=== PATIENT | female | born 1945 | race Caucasian/White ===

== ENCOUNTER → 2017-09-05 | Outpatient (CLI) | payer MEDICARE, OTHER ==
--- NOTE | 2017-09-13 09:35 | MAM ---
EXAM DESCRIPTION: 3D Screening BILATERAL : Digital Mammography. CLINICAL HISTORY: 71 years Female SCREENING . No complaints. No family history of breast cancer. Postmenopausal. Taking HRT 5 or more years ago. COMPARISON: 2-D digital screening bilateral studies 04/17/2016 and 03/13/2015.. No prior reports available. TECHNIQUE: Bilateral CC and MLO projection full-field images, 3-D tomosynthesis digital mammographic technique. Also bilateral synthesized CC/ MLO full-field images. CAD not utilized. FINDINGS: The breast parenchymal density pattern is: Scattered areas of fibroglandular density. No skin thickening or nipple retraction bilateral solitary microcalcifications. Coarse calcifications in the lateral right breast associated with soft tissue density. 2 of these show larger benign-appearing calcifications since the prior study. These are consistent with small fibroadenomas. No focal, stellate mass or density, focal asymmetry , and no suspicious microcalcifications bilaterally. IMPRESSION: BI-RADS CATEGORY: 2 - BENIGN FINDINGS. FOLLOW UP: Routine digital bilateral screening, one year interval from September 2017. Written communication explaining the IMPRESSION and follow-up, will be mailed to the patient and referring health care provider. According to the [employer], yearly mammograms are recommended starting at age 40 and continuing as long as a woman is in good health. Any breast change noted on a breast self-exam should be reported promptly to the patient's healthcare provider. Breast MRI is recommended for women with an approximately 20-25% or greater lifetime risk of breast cancer, including women with a strong family history of breast or ovarian cancer and women who have been treated for Hodgkin's disease. A negative mammographic report should not delay tissue diagnosis in patients with significant clinical history or physical findings. Extremely dense breast tissue limits the sensitivity of digital mammography. Electronically signed by: Jony Mancilla MD 09/13/2017 9:34 AM ANCILLARY SERVICES MANAGER
== END ==
LOC: MAMMO 11:00
PROVIDERS: ATTEND Family Medicine
DX: Z12.31 Encounter for screening mammogram for malignant neoplasm of breast (principal)

== ENCOUNTER → 2017-10-14 | Outpatient (CLI) | payer MEDICARE, OTHER | LOC: GMATM 19:16 | PROVIDERS: ATTEND Nurse Practitioner Family | DX: N39.0 Urinary tract infection, site not specified (principal) ==

== ENCOUNTER → 2017-11-16 | Outpatient (CLI) | payer MEDICARE, OTHER | LOC: GMATM 21:19 | PROVIDERS: ATTEND Nurse Practitioner Family | DX: N39.0 Urinary tract infection, site not specified (principal) ==

== ENCOUNTER → 2018-07-05 | Outpatient (CLI) | payer MEDICARE, OTHER ==
--- NOTE | 2018-08-03 12:44 | US ---
EXAM DESCRIPTION: Renal Arteries CLINICAL HISTORY: 72 years Female, HTN COMPARISON: None. TECHNIQUE: Retroperitoneal sonogram was performed to evaluate the kidneys with attention of the renal arteries. FINDINGS: Right kidney No longitudinal images of the right kidney. No renal length measurement is included. One image is labeled right renal artery which appears to be at the level of the renal hilum. Resistive index is 82% which is high. Velocity is 88 cm/s which is within normal limits. Renal cortex may be increased in echogenicity. The adjacent hepatic parenchyma appears hyperechoic and fatty. Bowel gas obscures most of the length of the right renal artery. No diagnostic images of the aorta or aortic velocity measurements. Left kidney No longitudinal images of the left kidney. No measured left renal length. An image labeled left renal artery is apparently obtained at the level of the left renal hilum with a resistive index of 79% which is elevated. The velocity of 86 cm/s is not increased. Bowel gas obscures most of the length of the left renal artery. Renal cortex may be thinned with increased echogenicity. No images of the urinary bladder. IMPRESSION: Renal artery velocity measurements obtained at the renal sharon bilaterally are within normal limits. See above. Electronically signed by: Dillon Ritchie MD 08/03/2018 12:42 PM COMPANION
== END ==
LOC: LAB.O 08:30
PROVIDERS: ATTEND Internal Medicine Nephrology
DX: I10 Essential (primary) hypertension (principal)

== ENCOUNTER → 2020-05-13 | Outpatient (CLI) | payer MEDICARE | LOC: GMAF 14:09 | PROVIDERS: ATTEND Nurse Practitioner Family | DX: R60.0 Localized edema (principal) ==

== ENCOUNTER → 2020-05-14 | Outpatient (CLI) | payer MEDICARE ==
--- NOTE | 2020-05-14 23:43 | US ---
EXAM DESCRIPTION: Venous,Lower Extremity LT (accession [id number]), Venous,Lower Extremity RT (accession [id number]) CLINICAL HISTORY: 74 years Female, LOC SWELLING, MASS AND LUMP, LOWER LIMB CAMILLE COMPARISON: None. TECHNIQUE: Multiple grayscale, color flow, and spectral Doppler images of the bilateral lower extremity veins obtained. FINDINGS: Right: Patent without thrombosis through the visualized lower extremity veins. Left: Patent without thrombosis through the visualized lower extremity veins. Complex cyst in the right popliteal fossa measuring 6.4 x 2.7 x 3.7 cm. IMPRESSION: 1. Negative ultrasound for deep vein thrombosis. 2. Right Starr's cyst. Electronically signed by: Carter Mayo MD 05/14/2020 11:42 PM CDT
--- NOTE | 2020-05-14 23:43 | US ---
EXAM DESCRIPTION: Venous,Lower Extremity LT (accession [id number]), Venous,Lower Extremity RT (accession [id number]) CLINICAL HISTORY: 74 years Female, LOC SWELLING, MASS AND LUMP, LOWER LIMB CAMILLE COMPARISON: None. TECHNIQUE: Multiple grayscale, color flow, and spectral Doppler images of the bilateral lower extremity veins obtained. FINDINGS: Right: Patent without thrombosis through the visualized lower extremity veins. Left: Patent without thrombosis through the visualized lower extremity veins. Complex cyst in the right popliteal fossa measuring 6.4 x 2.7 x 3.7 cm. IMPRESSION: 1. Negative ultrasound for deep vein thrombosis. 2. Right Starr's cyst. Electronically signed by: Carter Mayo MD 05/14/2020 11:42 PM CDT
== END ==
LOC: RAD 09:58
PROVIDERS: ATTEND Family Medicine
DX: M71.21 Synovial cyst of popliteal space [Baker], right knee (principal); R22.43 Localized swelling, mass and lump, lower limb, bilateral

== ENCOUNTER → 2020-06-09 | Outpatient (CLI) | payer MEDICARE ==
--- NOTE | 2020-06-09 17:53 | CT ---
EXAM DESCRIPTION: Abdomen/Pelvis w/Contrast CLINICAL HISTORY: 74 years Female, UPPER ABDOMINAL PAIN, UNSPECIFIED TECHNIQUE: This exam was performed according to our departmental dose-optimization program, which includes automated exposure control, adjustment of the mA and/or kV according to patient size and/or use of iterative reconstruction technique. COMPARISON: None at time of initial interpretation. FINDINGS: Visualized lung bases are grossly unremarkable. The liver is unremarkable. No suspicious hepatic lesion. No biliary dilatation. Cholecystectomy. The portal vein is patent. The spleen, pancreas and adrenal glands are unremarkable. Small hiatal hernia. Symmetric renal parenchymal enhancement. No hydronephrosis. No urolithiasis. Unremarkable bladder. Hysterectomy. Complex cystic septated right pelvic mass with a peripheral coarse calcification. This cystic mass measures 5.8 x 4.5 cm and is closely associated with the small bowel in the right pelvis. Scattered colonic diverticula without focal inflammatory change. No evidence of bowel obstruction. No findings to suggest appendicitis. No adenopathy. No focal fluid collection. No free air. Normal caliber abdominal aorta. Diffuse atherosclerotic disease. No acute or suspicious osseous abnormality. Scattered degenerative changes present. IMPRESSION: 1. No evidence of acute process in the abdomen or pelvis. 2. Complex septated cystic right pelvic mass measuring 5.8 cm which may be adnexal in origin. Recommend pelvic ultrasound and gynecologic consultation. Electronically signed by: Judson Mclaughlin MD 06/09/2020 5:52 PM CHIEF BUSINESS DEVELOPMENT OFFICER
== END ==
LOC: RAD 10:51
PROVIDERS: ATTEND Family Medicine
DX: R10.10 Upper abdominal pain, unspecified (principal); R19.09 Other intra-abdominal and pelvic swelling, mass and lump

== ENCOUNTER → 2020-06-18 | Outpatient (CLI) | payer MEDICARE ==
--- NOTE | 2020-06-18 19:55 | CT ---
EXAM DESCRIPTION: Abdomen/Pelvis w/wo Contrast: Computed Tomography. CLINICAL HISTORY: ABDOMINAL PAIN. Colonic stricture. COMPARISON: CT scan of the abdomen with IV contrast June 09 TECHNIQUE: Spiral-axial scans at 5 x 5 mm intervals through the abdomen and pelvis before and after 75 mL Optiray 320 nonionic IV contrast. After 60 mL Gastrografin water-soluble contrast with equal parts water mixture. Coronal and sagittal 2.0 mm reconstructions. No delayed images No adverse reactions. Total Exam DLP 2174 mGy - cm. This exam was performed according to our departmental CT dose-optimization program which includes automated exposure control, adjustment of the mA and/or kV according to patient size and/or use of iterative reconstruction technique; to reduce radiation dose to as low as reasonably achievable (ALARA). FINDINGS: Terminal Ileum/Cecum: Normal caliber of the terminal ileum. Distention of the cecum with gas and fecal matter. Minimal wall thickening. Appendix not seen. No fatty inflammatory changes. Colon: Ascending colon and the proximal and transverse colon are distended by fecal matter and gas. At the junction of the distal transverse splenic flexure of the colon, there is irregular narrowing of the lumen and wall of the colon which is approximately 3-10 cm in length. No fatty stranding or fluid surrounding this stricture. No soft tissue mass. Small Diverticula are noted distal to the stricture, with suggestion of small air pockets in the wall of the stricture. This process is best demonstrated on the CT sagittal series 500, images 136-160. The stricture is not significantly changed from the prior study. The remainder of the colon is decompressed. No significant wall or mucosal thickening and no additional strictures. No other diverticula are noted. Pelvic Organs: The septated lobulated right adnexal mass seen on the prior study with cystic and cystic-solid compartments, measuring 5.0 x 4.8 x 4.6 cm is stable. Calcification in the edge of the mass. Mass effect on small bowel and right posterior urinary bladder. No free fluid in the pelvis. No mass in the left adnexa. The vaginal cuff is negative. No fluid in the cul-de-sac.. Spine and Bony Pelvis: Hip joint space narrowing. Lumbar spondylosis and spondylolisthesis. Abdominal Wall/Back Soft Tissues: Fatty inguinal hernias containing bowel. No diastases of the midline abdominal wall inferior to the umbilicus which also demonstrates diastases. No incarcerated bowel. Lung bases and pleura: Coronary artery calcifications. Minimal pleural thickening with no acute infiltrate. Liver, Stomach, Spleen, Adrenal Glands: Long axis right lobe liver 19.7 cm stable. No focal lesions. Paraesophageal hernia stable. Adrenal glands and spleen normal size and density. Pancreas, Gallbladder, Ducts: Surgical clearance, possibly. Dilated common bile duct. Pancreas is unremarkable with pancreatic duct is not dilated. Kidneys and Ureters: Prominent right extrarenal pelvis but no obstruction. Bilateral kidneys and ureters otherwise negative. Mesentery: No fatty stranding or fascial thickening. No free air free fluid. Aorta: Moderate atherosclerotic calcification more severe in the distal aorta and calcification of the major branch vessels. Small Bowel: Contains oral contrast with no air contrast levels or distention. Or obstruction. IMPRESSION: 1. Irregular stricture 3 to 10 cm of the mucosa and wall of the junction of the transverse colon and hepatic flexure with distention of the cecum, ascending colon and transverse colon by fecal matter and gas. Colon distal to this stricture is decompressed. No inflammatory changes or fluid in the adjacent fat. No extrinsic mass. Stable since June 09. Possibly old diverticulitis or other inflammatory process progressing to stricture. 2. Multiloculated partially cystic and partially solid right adnexal mass with calcification with no separate or normal ovarian tissue seen. No free fluid. Stable since June 09. 5 cm indeterminate ovarian cyst. Recommend prompt follow-up with pelvic US. Reference: J Am Noe Radiol 2013;10:675-681. 3. Paraesophageal gastric hernia. Fatty inguinal hernia not containing bowel. Diastases of the umbilicus in the Abdominal wall inferior to the umbilicus not containing bowel. Hepatomegaly. Moderate atherosclerotic calcification of the abdominal aorta. These findings are stable since the prior study CRITICAL COMMUNICATION: The critical value was communicated directly by Dr. Mancilla via phone call, with Dr. Aneudy North, at approximately 1910 hours, on June 18, 2020. Electronically signed by: Jony Mancilla MD 06/18/2020 7:53 PM CDS SALES ADVISOR
== END ==
LOC: LAB.O 14:26
PROVIDERS: ATTEND Surgery
DX: K56.609 Unspecified intestinal obstruction, unspecified as to partial versus complete obstruction (principal); K63.9 Disease of intestine, unspecified; K44.9 Diaphragmatic hernia without obstruction or gangrene; K40.90 Unilateral inguinal hernia, without obstruction or gangrene, not specified as recurrent; R16.0 Hepatomegaly, not elsewhere classified; R19.09 Other intra-abdominal and pelvic swelling, mass and lump; N83.209 Unspecified ovarian cyst, unspecified side; I70.0 Atherosclerosis of aorta; M62.08 Separation of muscle (nontraumatic), other site

== ENCOUNTER → 2020-06-19 | Outpatient (CLI) | payer MEDICARE ==
--- NOTE | 2020-06-20 12:54 | RAD ---
EXAM DESCRIPTION: Barium Enema: RF CLINICAL HISTORY: RULE OUT TRANSVERSE COLON STRUCTURE COMPARISON: CT scan of abdomen and pelvis with IV contrast June 09. CT scan of abdomen and pelvis with IV and oral contrast June 18. TECHNIQUE: Fluoroscopy performed by Dr. Mancilla. Backup Administrative Coordinator Image obtained in supine position. Barium enema tip inserted in rectum. Barium contrast introduced into the rectum in a retrograde manner under fluoroscopic visualization. Multiple fluoroscopic guided images. The patient partially evacuated the barium and the enema tip dislodged. Enema tip was reinserted and additional barium was administered, with additional fluoroscopic images. Patient again partially evacuated and dislodged enema tip. No overhead digital radiographic images were obtained. The patient had no immediate complications. Fluoroscopy time was 4.5 minutes. Fluoroscopic images recorded: 15 . Conventional abdominal images recorded: Backup Administrative Coordinator Image only . DAP: 38.04 Gy-centimeter squared. FINDINGS: Difficulty introducing the barium in the distal colon which is decompressed. Spasm in the distal sigmoid colon. Minimal narrowing in the splenic flexure, but no elongated stricture as was seen on the most recent CT scan. One segment demonstrates irregularity in the approximate region where CT abnormality was noted. Full distention of this region of interest by barium contrast was not achieved due to premature evacuation. Mostly gas in the transverse colon, and contains fecal material in the ascending colon, hepatic flexure, and proximal transverse colon. No contrast extravasation. IMPRESSION: Irregular short segment in the vicinity of the splenic flexure of the colon and distal transverse colon which may correspond to abnormal stricture on CT scan but shorter in length than the CT abnormality. The study was limited by lack of contrast distention in the region of interest due to patient inability to retain barium to complete the study. No barium contrast leakage demonstrated. Electronically signed by: Jony Mancilla MD 06/20/2020 12:52 PM AUDITING CONTROL CLERK
== END ==
LOC: US 10:45
PROVIDERS: ATTEND Surgery
DX: K56.690 Other partial intestinal obstruction (principal)

== ENCOUNTER 2020-06-24 08:00 | Inpatient (IN) | payer MEDICARE ==
[2020-06-24] MEDS ORDERED: MAGNESIUM HYDROXIDE 30 ML UD PO ONE (17:24)
[2020-06-24] MEDS ORDERED: ONDANSETRON INJ 4 MG/2 ML VIAL IV PRN (17:24)
[2020-06-24] MEDS ORDERED: GLUCAGON INJ 1 MG VIAL SUBCU PRN (17:28)
[2020-06-24] MEDS ORDERED: DEXTROSE 50% 25 GM/50 ML SYG IV PRN (17:28)
[2020-06-24] MEDS ORDERED: ACETAMINOPHEN W/ COD #4 TAB 1EA TAB PO PRN (18:39)
--- NOTE | 2020-06-24 18:58 | CONS ---
SUPERVISING PHYSICIAN: Camron House MD HISTORY OF PRESENT ILLNESS: This is a 74 year-old female patient who was admitted to the hospital today for a scheduled abdominal surgery. She had been complaining of some abdominal pain and requested Dr. Padilla North, general surgeon, for operative intervention. He took her to surgery today and found adhesions that were removed laparoscopically and there was no mass or tumor found. She had no intraoperative complications and she was admitted to the medical/surgical floor postoperatively. PAST MEDICAL HISTORY: 1. Hypertriglyceridemia.. 2. Hypertension. 3. Type 2 diabetes. 4. Osteoporosis. PAST SURGICAL HISTORY: 1. Cholecystectomy. 2. Hysterectomy. CURRENT MEDICATIONS: Per the EMR and awaiting verification. ALLERGIES: Cephalexin and Ciprofloxacin. FAMILY HISTORY: Positive for CVA, DC and hypertension. SOCIAL HISTORY: She is , she lives in [place]. There is no history of tobacco, ETOH or illicit drug use. REVIEW OF SYSTEMS: Negative except as per history of present illness. PHYSICAL EXAMINATION: VITAL SIGNS: Temperature 97.8, heart rate 65, blood pressure 132/70, respiratory rate 14, oxygen saturation 92% on 2 liters nasal cannula. GENERAL: This is a 74 year-old female patient who is on the med/surg postoperatively. She is in no acute distress. HEENT: Normocephalic and atraumatic. Pupils are equal and reactive. Oropharynx is clear. NECK: Supple without mass. CHEST: Essentially clear to auscultation bilaterally. HEART: Regular rate and rhythm. ABDOMEN: Soft, nondistended. It is diffusely tender. NEUROLOGIC: She is lethargic postoperatively but answers questions appropriately. SKIN: [place], warm and dry. LABORATORY: There are no labs or films to report at this time. IMPRESSION: 1. Abdominal pain with lysis of adhesions, postoperative day #0, performed by Dr. Padilla North. 2. Hypertension. 3. Diabetes mellitus. 4. Hypertriglyceridemia. PLAN: We will continue present supportive care. Operative issues will be per Dr. North and we will follow his recommendations. I have encouraged good pulmonary hygiene. I have put her on some judicious fluids overnight. She will have her diet advanced from clear to full liquid tomorrow. She has Tylenol #4 for pain medication. We will follow and treat has needed. #[id number] [facility]
[2020-06-24] MEDS ORDERED: MAGNESIUM HYDROXIDE 30 ML UD ONE (20:03)
[2020-06-24] MEDS: INSULIN LISPRO 100 UNITS/ML PEN SUBCU SCH (21:01)
[2020-06-25] MEDS: KCL 20MEQ/D5 1/2NS 1,000 ML IVS PRN ×2 (01:22→10:48)
[2020-06-25] MEDS: INSULIN LISPRO 100 UNITS/ML PEN SUBCU SCH ×2 (07:11→11:36)
[2020-06-25 10:31] VITALS: BP 172/69; TEMP 98.3; O2SAT 95
--- NOTE | 2020-06-25 14:19 | DS ---
REASON FOR ADMISSION: Colon obstruction. PROCEDURE: Laparoscopic adhesiolysis. CONSULTANTS: Medicine. HOSPITAL COURSE: The patient came for colon obstruction and pending total obstruction. She underwent laparoscopy. Please see operative report for complete details. We found adhesions in the area of interest. No obvious mass. Once the adhesions were freed, it appeared the colon was wide open at this point. She was admitted postoperatively for observation. At this point, she has had no flatus or stool, but she is feeling well, tolerating a liquid diet. Given her findings in the Operating Room, it appears this should resolve the problem, so we recommended she will be discharged. She is to take laxatives at home, advance diet as tolerated. I will see her next Tuesday, where I would like to perform a formal bowel prep and repeat a colonoscopy. Her last was 5 years ago. We would like to see that area from the inside which showed abnormality on the barium enema as well. She understands and agrees to this plan. #[id number] [facility]
--- NOTE | 2020-07-08 09:58 | OP ---
DATE OF PROCEDURE: 06/24/20 PREOPERATIVE DIAGNOSIS: 1. Documented transverse colon stricture. POSTOPERATIVE DIAGNOSIS: 1. Adhesions. PROCEDURE: 1. Laparoscopic exploration and adhesiolysis. SURGEON: Padilla North MD. TYPESETTING MACHINE TENDER: Yared Portillo MD. ANESTHESIA: General and local. FINDINGS: In the area of suspected stricture of the distal transverse colon were unusual adhesions of the omentum to the mesentery. These were all taken down. Final examination revealed no evidence of masses or continued stricture. INDICATION: This woman had a history of constipation, multiple laxatives and this has gone on for a long, long time. She had a CT scan that was read as relatively normal, but on my review, there appeared to be a stricture in the distal transverse colon. We repeated the scan well over a week later and the area of suspicion persisted. She was not completely blocked up. The cecal size was not dangerously dilated. We then had barium enema performed which was not an optimal study, but it did confirm some changes in that area as well, so I recommended surgery, possible colectomy, possible splenic flexure takedown. Risks and benefits were discussed. PROCEDURE: The patient was brought to the Operating Suite in supine position. General anesthesia was induced. The patient was prepped and draped in sterile fashion. Marcaine 0.5% with epinephrine was used at all incision sites. While maintaining upward traction, a lizzy was made near the base of the umbilicus. Veress needle was introduced. There was free flow of fluid into the peritoneal cavity which was insufflated to an appropriate level with CO2 gas. The 5 mm trocar was placed followed by the camera. There was no evidence of bleeding or bowel injury. The patient was positioned and examined. The area was fat and could not identify much at this time. Two additional ports were placed in the right midabdomen just lateral to midline and we began an exam in the area. The colon was dilated. We could see this to near the distal transverse colon. The inferior pole of the spleen was identified. We began to dissect omental adhesions to the mesentery of the distal transverse colon. This freed up the area of colon underneath. There were still more adhesions here, so we freed this up. I did document with pictures one specific area that had a lot of adhesions going over the colon. Once these were freed, the underlying colon did not appear to be strictured, but the stricture may have been relieved as we took the adhesions off the anterior bowel. We manipulated as much as we could to rule out a mass. We could see the area. It was nice and soft. There was no evidence of a mass. As we manipulated the bowel, we could see the large amount of air going up through and passing through the area easily. The mesentery was examined. There was no evidence of mesenteric adenopathy, nothing not seen on CT scan, no other findings were seen during surgery. It appeared we had relieved the strictured area with adhesiolysis only. At this point, the abdomen was desufflated. The trocars were removed and there was no bleeding from the trocar sites. The wounds were closed with Monocryl and dressing applied. She was awakened and taken to Recovery where she will be observed overnight and discharged. I will likely do a colonoscopy just to confirm the mucosal surfaces are normal as well. #[id number] MTDD
== END 2020-06-25 14:09 | disposition home or self-care (01) | DRG 337 ==
LOC: UNDOADMIN 13:16 → MS 13:16
PROVIDERS: ADMIT Surgery; ATTEND Surgery
PROC: 0DNL4ZZ Release Transverse Colon, Percutaneous Endoscopic Approach (ICD-10-PCS; principal; 2020-06-24)
DX: K56.51 Intestinal adhesions [bands], with partial obstruction (principal); E78.1 Pure hyperglyceridemia; I10 Essential (primary) hypertension; E11.9 Type 2 diabetes mellitus without complications; M81.0 Age-related osteoporosis without current pathological fracture; Z88.1 Allergy status to other antibiotic agents; Z79.84 Long term (current) use of oral hypoglycemic drugs; Z79.899 Other long term (current) drug therapy; E78.00 Pure hypercholesterolemia, unspecified; F32.9 Major depressive disorder, single episode, unspecified; Z79.82 Long term (current) use of aspirin

== ENCOUNTER 2020-07-03 20:32 | Emergency (ER) | payer MEDICARE ==
[2020-07-03] MEDS ORDERED: SODIUM CHLORIDE 0.9% 1000ML 1,000 ML IVS PRN (21:07)
--- NOTE | 2020-07-03 21:15 | ED.PDOC ---
History of Present Illness - General Stated Complaint: confusion, hyponatremia Time Seen by Provider: 07/03/20 20:41 Source: patient, RN notes reviewed, Vital Signs reviewed, family, old records, other - outside labs from [facility] - History of Present Illness Initial Comments: Patient is a 74-year-old female who presents to ED with her daughter for 5-day history of increased confusion, drowsiness and balance problems. Daughter states that she had surgery here by Dr. Jones for a bowel obstruction on June 24. She had difficulty with constipation following surgery and they have been pushing oral hydration with free water. She also took magnesium citrate on Tuesday and had several stools at that time. Her confusion has been worsening for the past 4 days and she states she has been having difficulty walking due to balance problems is. Patient denies any fever, headache, abdominal pain, chest pain, shortness of breath, nausea or vomiting. The home health nurse came to the house today and sunita blood and they were called [facility] and told to go to the ER because her sodium level was 114 and it was dangerously low. Timing/Duration: getting worse Severity: moderate Improving Factors: nothing Worsening Factors: nothing Allergies/Adverse Reactions: Allergies Cephalexin [From Keflex] Allergy (Verified 08/16/14 12:42) Ciprofloxacin [From Cipro] Allergy (Verified 06/24/20 14:33) Home Medications: Ambulatory Orders Alendronate Sodium [Fosamax] 70 mg PO WKLY 06/24/20 Amlodipine Besylate [Norvasc] 5 mg PO DAILY 06/24/20 Aspirin (Buffered) 325 mg [Bufferin 325 mg] 1 ea PO PRN PRN 06/24/20 Atorvastatin Calcium 40 mg PO BEDTIME 06/24/20 Carvedilol 25 mg PO BID 06/24/20 Citalopram Hydrobromide [Citalopram] 20 mg PO DAILY 06/24/20 Clonidine HCl 0.1 mg PO TID 06/24/20 Cyclobenzaprine HCl [Cyclobenzaprine Hydrochlo] 10 mg PO BID PRN 06/24/20 Hydrochlorothiazide 25 mg PO BID 06/24/20 Lisinopril 40 mg PO BID 06/24/20 Metformin HCl [Glumetza] 500 mg PO DAILY 06/24/20 traZODone HCL [Desyrel] 50 mg PO BEDTIME 06/24/20 Review of Systems - Review of Systems Constitutional: Denies: chills, fever, weakness EENTM: Denies: blurred vision, nose congestion, throat pain Respiratory: Denies: cough, short of breath Cardiology: Denies: chest pain, palpitations, syncope Gastrointestinal/Abdominal: Denies: abdominal pain, nausea Genitourinary: Denies: dysuria, frequency Musculoskeletal: Denies: back pain, muscle pain Skin: Denies: rash Neurological: States: other - Balance issues, confusion, increased sleepiness. Denies: headache Hematologic/Lymphatic: States: no symptoms reported All other Systems: Reviewed and Negative Past Medical History (General) - Patient Medical History Hx Seizures: No Hx Stroke: No Hx Dementia: No Hx Asthma: No Hx of COPD: No Hx Cardiac Disorders: No Hx Congestive Heart Failure: No Hx Pacemaker: No Hx Hypertension: Yes Hx Thyroid Disease: No Hx Diabetes: No Hx Gastroesophageal Reflux: No Hx Renal Disease: No Hx Cancer: Yes - Uterus Hx of HIV: No Hx Hepatitis C: No Hx MRSA: No Surgical History: Hysterectomy, other - Vaccination History Hx Tetanus, Diphtheria Vaccination: No Hx Influenza Vaccination: Yes Hx Pneumococcal Vaccination: No - Social History Hx Tobacco Use: No Hx Chewing Tobacco Use: No Hx Alcohol Use: No Hx Substance Use: No Hx Substance Use Treatment: No Hx Depression: No Feels Threatened In Home Enviroment: No Feels Threatened In a Relationship: No Hx Physical Abuse: No Hx Emotional Abuse: No Hx Suspected Abuse: No - Female History Patient is a Female of Child Bearing Age (10 -59 yrs old): No Patient : No - Triage Comment ED Triage Comment: The patient was brought into the ER via wheelchair into ER bed 1. She was alert and oriented times 4 but was weak and needed assistance moving from wheelchair to the ER bed. She denied pain, shortness of breath, chest pain and nausea. Her main complaint was weakness and confusion since post surgery. Family Medical History - Family History Sister Living Status: Still Living Hx Family Hypertension: Yes Physical Exam - Physical Exam General Appearance: Alert, Comfortable, No apparent distress, Other - Lying in bed comfortably Eye Exam: bilateral other - PERRL, no nystagmus Ears, Nose, Throat: normal pharynx Neck: non-tender, full range of motion, supple Respiratory: chest non-tender, lungs clear, normal breath sounds, no respiratory distress Cardiovascular/Chest: regular rate, rhythm, no edema Gastrointestinal/Abdominal: non tender, soft, other - abdomen is soft. Mild ecchymosis to right abdomen. NTTP, surgical incisions are c/d/i Back Exam: no CVA tenderness, no vertebral tenderness Extremity: normal range of motion, non-tender, normal inspection Neurologic: alert, normal mood/affect, oriented x 3, other - CN intact, strength 5/5 x 4 Skin Exam: normal color, warm/dry Progress - Progress Progress: 07/03/20 21:20 Patient presents with a history of confusion, drowsiness and balance issues. She had abdominal surgery 9 days ago for a stricture of transverse colon and had laproscopic lysis of adhesions. She denies any fever or abdominal pain. Labs were performed by home health agency and RN our system tonight showing sodium, chloride of 76, creatinine of 0.6, glucose of 91, and white blood cell count of 6. Will start slow IV fluids to correct hyponatremia and will not increase more than 10 points in a 24-hour.. Also get CT of the brain to rule out intracranial pathology causing her symptoms and urinalysis to rule out urinary tract infection. With Dr. Jones patient's symptoms and labs. She has no abdominal tenderness or fever. He is available to consult if needed and recommends admission to medicine service. 07/03/20 21:54 D/W Deanna Saleem, hospitalist, they do not take hyponatremia of less than 116 here. Will have to transfer for higher level of care. 07/03/20 22:01 D/W pt and daughter results and plan to transfer. Pt daughter is a nurse at [facility] and they request to attempt to transfer to that facility. Will start transfer process. 07/03/20 23:51 D/W Dr. Calix at [facility] and he accepts pt transfer. - Results/Orders Results/Orders: CT BRAIN EXAM: CT head without contrast CLINICAL INDICATION: Altered mental status COMPARISON: There is no previous study for comparison. TECHNIQUE: CT scan was done using contiguous axial 5 mm sections through the brain. This exam was performed according to our departmental dose-optimization program, which includes automated exposure control, adjustment of the mA and/or kV according to patient size and/or use of iterative reconstruction technique. FINDINGS: There is no midline shift, mass effect, or extraaxial fluid collection. There is no evidence of acute intracranial hemorrhage, mass lesion, or cerebral edema. Mild diffuse atrophy and moderate nonspecific chronic ischemic changes are identified. 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 Bone window images reveal no evidence of a skull fracture. IMPRESSION: No evidence of an acute intracranial process. COVID NEGATIVE SEE EMR for CBC, CMP. Sodium 114, Chloride 76 Laboratory Results - last 24 hr 07/03/20 22:33 Urine Color Straw Urine Appearance Sl cloudy Urine pH 6.5 Ur Specific [place] <= 1.005 Urine Protein Negative Urine Glucose (UA) Negative Urine Ketones Negative Urine Blood Negative Urine Nitrite Negative Urine Bilirubin Negative Urine Urobilinogen 0.2 Ur Leukocyte Esterase Trace H Urine RBC 0 Urine WBC 1-3 Ur Epithelial Cells 3-5 Urine Bacteria Rare Departure - Departure Clinical Impression: Hyponatremia, Elevated blood pressure reading, Hypochloremia Altered mental state Qualifiers: Altered mental status type: unspecified Qualified Code(s): R41.82 - Altered mental status, unspecified Time of Disposition: 23:52 Disposition: Transfer to Hospital Condition: Fair Referrals: Padilla You MD [Primary Care Provider] - 1-2 Weeks Home Medications: Ambulatory Orders Alendronate Sodium [Fosamax] 70 mg PO WKLY 06/24/20 Amlodipine Besylate [Norvasc] 5 mg PO DAILY 06/24/20 Aspirin (Buffered) 325 mg [Bufferin 325 mg] 1 ea PO PRN PRN 06/24/20 Atorvastatin Calcium 40 mg PO BEDTIME 06/24/20 Carvedilol 25 mg PO BID 06/24/20 Citalopram Hydrobromide [Citalopram] 20 mg PO DAILY 06/24/20 Clonidine HCl 0.1 mg PO TID 06/24/20 Cyclobenzaprine HCl [Cyclobenzaprine Hydrochlo] 10 mg PO BID PRN 06/24/20 Hydrochlorothiazide 25 mg PO BID 06/24/20 Lisinopril 40 mg PO BID 06/24/20 Metformin HCl [Glumetza] 500 mg PO DAILY 06/24/20 traZODone HCL [Desyrel] 50 mg PO BEDTIME 06/24/20 Transfer to Outside Facility - Transfer Information Decision to Transfer Date: 07/03/20 Decision to Transfer Time: 22:55 Reason for Transfer: specialized care not available
--- NOTE | 2020-07-03 21:41 | CT ---
EXAM: CT head without contrast CLINICAL INDICATION: Altered mental status COMPARISON: There is no previous study for comparison. TECHNIQUE: CT scan was done using contiguous axial 5 mm sections through the brain. This exam was performed according to our departmental dose-optimization program, which includes automated exposure control, adjustment of the mA and/or kV according to patient size and/or use of iterative reconstruction technique. FINDINGS: There is no midline shift, mass effect, or extraaxial fluid collection. There is no evidence of acute intracranial hemorrhage, mass lesion, or cerebral edema. Mild diffuse atrophy and moderate nonspecific chronic ischemic changes are identified. 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 Bone window images reveal no evidence of a skull fracture. IMPRESSION: No evidence of an acute intracranial process. Electronically signed by: South Lucas MD 07/03/2020 9:39 PM [facility]
[2020-07-03 23:18] VITALS: TEMP 97.2
[2020-07-04 00:48] VITALS: BP 165/72; O2SAT 97
== END 2020-07-04 00:49 | disposition short-term general hospital (02) ==
LOC: ER 20:32
DX: R41.82 Altered mental status, unspecified (principal); E87.1 Hypo-osmolality and hyponatremia; E87.8 Other disorders of electrolyte and fluid balance, not elsewhere classified; I10 Essential (primary) hypertension; R53.1 Weakness; Z20.828 Contact with and (suspected) exposure to other viral communicable diseases; Z98.890 Other specified postprocedural states; Z85.42 Personal history of malignant neoplasm of other parts of uterus; Z79.84 Long term (current) use of oral hypoglycemic drugs; Z79.899 Other long term (current) drug therapy; Z79.82 Long term (current) use of aspirin; Z88.1 Allergy status to other antibiotic agents
CPT/HCPCS: 70450; 80053; 81001; 83880; 85025; 87635; J7030

== ENCOUNTER 2020-07-10 13:15 | Day surgery (SDC) | payer MEDICARE ==
[~2020-07-10 13:15] MED LIST: LIDOCAINE 1% 10 ML VIAL INJ ONE; PROPOFOL 200 MG/20 ML VIAL IV ONE
[2020-07-11] MEDS ORDERED: LACTATED RINGERS 1,000 ML ONE (06:52)
[2020-07-11 10:27] VITALS: O2SAT 98
--- NOTE | 2020-07-11 11:17 | OP ---
DATE OF PROCEDURE: 07/11/20 PREOPERATIVE DIAGNOSIS: 1. Colon stricture post laparoscopic adhesiolysis. 2. History of colon polyps. POSTOPERATIVE DIAGNOSIS: 1. Colon polyps. PROCEDURE: 1. Colonoscopy with polypectomy x2, both 2 mm, and random colon biopsy near sigmoid. SURGEON: Padilla North MD COMPLICATIONS: None. PLAN: Discharge. INDICATION: This is a 74-year-old woman who recently had a laparoscopic exploration with adhesiolysis due to a persistent stricture in the transverse colon and some longstanding constipation. Adhesiolysis was performed. We now want to do a followup colonoscopy to ensure there are no internal mucosal abnormalities in that area and there were none. She was also recently admitted with hyponatremia that has been resolved. She got an adequate prep and is here today for the scope. PROCEDURE: General anesthesia was induced in the lateral position. Digital rectal exam was normal. She did have a lot of liquid stool that was coming, but overall an adequate prep. The colonoscope was inserted. There were some twists in the sigmoid with no significant diverticulosis. We got up to the cecum. There was multiple looping. We replaced the patient multiple times. We could definitely see the cecum and ileocecal valve in the distal cecum, I believe I saw the appendiceal orifice. We did not touch the end of the cecum, however, but we definitely were passed the transverse colon, which was our area of interest and it was normal. Upon careful withdrawal with an adequate prep, two polyps were seen. One was in the transverse colon. It was under 2 mm. Another was in the mid colon, under 2 mm. On withdrawal, we got a good distended look at the colon. If there was a stricture, we anticipated it would be a short segment, but everything distended well and all the transverse colon to the splenic flexure and down the descending was normal as well. In the distal descending near the sigmoid junction, there was some erythema in the mucosa, so two random biopsies in the same area were performed. Upon further withdrawal, no other abnormalities were seen. The patient tolerated the procedure, was awakened and taken to Recovery to be discharged. #[id number] cc: Padilla You MD [facility] CENTERReagan
[2020-07-11 11:35] VITALS: BP 103/54; TEMP 97.2
== END 2020-07-11 11:37 | disposition home or self-care (01) ==
LOC: AMB 13:15
PROVIDERS: ATTEND Surgery
DX: D12.3 Benign neoplasm of transverse colon (principal); E11.9 Type 2 diabetes mellitus without complications; I10 Essential (primary) hypertension; E78.00 Pure hypercholesterolemia, unspecified; F32.9 Major depressive disorder, single episode, unspecified; Z86.010 Personal history of colon polyps; Z88.1 Allergy status to other antibiotic agents; Z90.710 Acquired absence of both cervix and uterus; Z79.84 Long term (current) use of oral hypoglycemic drugs; Z79.899 Other long term (current) drug therapy
CPT/HCPCS: 00811; 36416; 45380; 82948; 88305; J3490; J7120

== ENCOUNTER → 2020-07-16 | Outpatient (CLI) | payer MEDICARE | LOC: BFHH 13:16 | PROVIDERS: ATTEND Family Medicine | DX: I10 Essential (primary) hypertension (principal); E87.1 Hypo-osmolality and hyponatremia; R42 Dizziness and giddiness; E11.40 Type 2 diabetes mellitus with diabetic neuropathy, unspecified; E78.2 Mixed hyperlipidemia; F32.9 Major depressive disorder, single episode, unspecified; F41.1 Generalized anxiety disorder; M81.0 Age-related osteoporosis without current pathological fracture ==

== ENCOUNTER → 2020-08-06 | Outpatient (CLI) | payer MEDICARE ==
--- NOTE | 2020-08-06 13:54 | MRI ---
EXAM DESCRIPTION: Thoracic Spine w/o Contrast: Magnetic Resonance Imaging. CLINICAL HISTORY: PAIN IN THORACIC SPINE COMPARISON: Radiographs of the lumbar and thoracic spine on July 28. TECHNIQUE: Multiplanar, multiple standard sequences, non contrast MRI, thoracic spine. FINDINGS: 4 x 4 millimeter protrusion at T3-T4 in the midline and left of midline impressing on the left ventral cord. Disc space loss and mild disc desiccation. Mild canal narrowing. Mild narrowing of the right foramen and left foramen patent. Facet joints are negative. Minimal desiccation of the T2-T3 disc with disc space maintained. Tiny posterior midline bulge with canal narrowing. Bilateral foramina are patent. Facet joints are negative. T7-T8, T6-T7, T5-T6, and T4-T5 discs are desiccated with disc space loss. Posterior midline bulge at T7-T8 abutting the cord. Tiny T5-T6 posterior disc bulge not abutting the cord with canal narrowing at both levels. Bilateral foramina are patent. Anterior disc bulging and endplate ridging also at T7-T8, T8-T9, and T9-T10. The lower 2 discs are not desiccated, and disc spaces maintained. T10-T11 disc space maintained with disc desiccation. No facet arthrosis at these levels and no canal or foraminal stenosis. Remaining discs with normal signal. Disc spaces are preserved. Canal and foramina are patent. Facet joints are unremarkable. Conus terminates at T12-L1. Cord with normal signal, no compression. Mid to lower lumbar dextroscoliosis. Paravertebral soft tissues are unremarkable. Normal marrow signal in the remaining vertebral bodies and the posterior elements. Vertebral bodies are not compressed at any level. IMPRESSION: 1. Posterior midline and left paracentral 4 mm protrusion of the T3-T4 disc impressing on the cord. Correlate for unilateral or bilateral decubitus radiculopathy. No cord edema. Moderate canal narrowing and mild narrowing of the right foramen. 2. Multiple disc with desiccation and disc space loss. No significant facet hypertrophic arthrosis or foraminal narrowing at any level. Mild scoliosis. Electronically signed by: Jony Mancilla MD 08/06/2020 1:52 PM [facility]
== END ==
LOC: MRI 09:50
PROVIDERS: ATTEND Family Medicine
DX: M51.24 Other intervertebral disc displacement, thoracic region (principal); M51.34 Other intervertebral disc degeneration, thoracic region; M47.894 Other spondylosis, thoracic region; M41.84 Other forms of scoliosis, thoracic region